=== PATIENT | female | born 2000 | race Hispanic/Latino ===

== ENCOUNTER 2022-07-02 06:53 | Day surgery (SDC) | payer BC ==
[2022-07-02] MEDS ORDERED: CEFAZOLIN SODIUM 1 GM/VIAL ONE (07:36)
[2022-07-02] MEDS ORDERED: Ringers Lactate 1,000 ML IV ONE (07:36)
[2022-07-02 07:37] LABS: Absolute Lymphocytes (CBC) 2.1 K/uL (0.7-4.9); Hematocrit 40.7 % (36.0-45.0); Lymphocytes % 31.5 % (15.3-44.8); MCV 91.6 fL (80-100); MPV 8.5 fL (7.6-11.3); RBC Red Blood Cell Count 4.44 M/uL (3.86-4.86)
[2022-07-02 07:41] LABS: SARS-CoV-2 Antigen Rapid Res Negative (Negative)
[2022-07-02 07:44] LABS: Potassium 3.7 mmol/L (3.5-5.1)
[2022-07-02] MEDS ORDERED: propofoL 200 MG/20 ML VIAL IV ONE (08:26)
[2022-07-02] MEDS ORDERED: LIDOCAINE 2% MPF 5 ML VIAL ONE (08:27)
[2022-07-02] MEDS ORDERED: FENTANYL CITR 100 MCG/2 ML ONE (08:27)
[2022-07-02] MEDS ORDERED: ONDANSETRON 4 MG/2 ML VIAL ONE ×2 (08:28→08:40)
[2022-07-02] MEDS ORDERED: MIDAZOLAM HCL 2 MG/2 ML INJ ONE (08:28)
[2022-07-02] MEDS ORDERED: dexAMETHasone 10 MG/ML VIAL ONE (08:39)
[2022-07-02] MEDS ORDERED: KETOROLAC 30 MG/ML INJ ONE (08:39)
--- NOTE | 2022-07-02 08:58 | P.BOP ---
Preoperative diagnosis: tender infected back subQ mass Postoperative diagnosis: same Primary procedure: Excisional biopsy of infected back subQ mass 3x3cm Supervisor Personnel Clerks: JOSE A MILLAN (REFERRAL AGENT) Estimated blood loss: <10cc Specimen: mass Findings: mass Anesthesia: General Complications: None Transferred to: Recovery Room Condition: Good
[2022-07-02 10:24] VITALS: BP 98/66; TEMP 97.4; O2SAT 100
--- NOTE | 2022-07-02 11:55 | DS ---
Date of Discharge: 07/02/2022 Diagnosis: Infected back subcutaneous mass. Procedure: Excisional biopsy of infected back subcutaneous mass. Disposition: Home. Activity: As tolerated. No heavy lifting. Plan: Follow up in my office in 1 week. Call for appointment at [phone]. Keep area dry for 48 parminder rs, then may shower. May apply triple antibiotics over the area. The patient advised to take her an tibiotics by mouth. JOHNNIE/NINO Voice ID: [id number] Report ID: [id number]
--- NOTE | 2022-07-02 11:55 | OP ---
Date of Procedure: 07/02/2022 Surgeon: Levi Ortega MD Horticultural Farmworker: Nnoi Bueno. Preoperative Diagnosis: Tender infected back subcutaneous mass, 3 x 3 cm. Postoperative Diagnosis: Tender infected back subcutaneous mass, 3 x 3 cm. Procedure: Excisional biopsy of infected back subcutaneous mass, 3 x 3 cm. Estimated Blood Loss: Less than 10 mL. Specimen: Mass. Anesthesia: General plus local. Indication: This is the case of a 21-year-old patient, who comes to us with a tender mass to the off ice, erythema present. Fully explained the benefits, alternatives, and risks of excision, which incl ude, but not limited to infection, bleeding, damage to adjacent structures, anesthesia complication, recurrence, [place] and even . She also understands this may not relieve any symptoms. She might ne ed more than one surgical intervention and she may require wound care. She signed the consent. She told me this morning that she saw some drainage coming from the wound. The area shows what she descr ibes has yellow discharge with some redness present. The patient understands and she preferred not t o have packing at the same time if we closed this area and we see in the next few days. If we do not see the proper recovery, we may have to do wet-to-dry dressing. She understood and she liked that p chaparro better. The area was marked by me and the patient in the holding room. Procedure In Detail: The patient was brought to the operating room, placed in supine position. Anes thesia was done without complication. The patient was placed in lateral decubitus position with prop er protection. The back area was prepped and draped in the usual sterile fashion. Local anesthesia was applied after time-out and a wedge incision was made in the skin to remove the mass intact. The area was excised. We did not see any pus deep inside, so we proceeded to irrigate the area profusely and then proceeded to close this with 3-0 chromic in a deep layer, mid layer with 3-0 chromic, and t hen skin with nylon. Sponge count, instrument counts correct. The patient tolerated the procedure w ell. The patient was sent to recovery in stable condition. JOHNNIE/NINO Voice ID: [id number] Report ID: [id number]
== END 2022-07-02 10:30 | disposition home or self-care (01) ==
LOC: PRE 06:53 → OR 10:30
PROVIDERS: ATTEND Surgery
PROC: 0HB6XZZ Excision of Back Skin, External Approach (ICD-10-PCS; principal; 2022-07-02 08:45)
DX: L72.0 Epidermal cyst (principal); Z20.822 Contact with and (suspected) exposure to COVID-19
CPT/HCPCS: 85025; 80048; 36415; 84703; 88304; 87811; 11403; J2704; J2250; J3010; J1100; J7120; J2405 ×2; J0690